=== PATIENT | male | born 1950 | race Caucasian/White ===

== ENCOUNTER 2018-02-01 10:06 | Outpatient (CLI) | payer MEDICARE | END 2018-02-01 10:07 | disposition home or self-care (01) | LOC: CTENTCT 10:06 | PROVIDERS: ATTEND Otolaryngology Plastic Surgery within the Head & Neck | DX: J32.9 Chronic sinusitis, unspecified (principal) | CPT/HCPCS: 70486 ==

== ENCOUNTER 2018-02-21 12:18 | Day surgery (SDC) | payer MEDICARE ==
[2018-02-20 12:34] VITALS: BMI 29.8
[2018-02-21] MEDS ORDERED: PROPOFOL 200 MG/20 ML VIAL ONE (12:28)
[2018-02-21] MEDS ORDERED: Dexamethasone 20 MG/5 ML VIAL ONE (12:28)
[2018-02-21] MEDS ORDERED: Lidocaine 1% PF 5 ML VIAL ONE (12:28)
[2018-02-21] MEDS ORDERED: Glycopyrrolate 0.2 MG/ML 5 ML SYRINGE ONE (12:28)
[2018-02-21] MEDS ORDERED: Ondansetron HCl/PF 4 MG/2 ML Vial ONE (12:28)
[2018-02-21] MEDS ORDERED: Oxymetazoline HCl 0.05% ( 15 ML ) ONE ×2 (14:36→15:40)
[2018-02-21] MEDS ORDERED: Lidocaine 1% w/Epinephrine 1:200K 30 ML VIAL ONE ×2 (14:47→15:40)
[2018-02-21 15:08] LABS: Hemoglobin 15.8 g/dL (14.0-18.0)
[2018-02-21] MEDS ORDERED: Fentanyl 100 MCG/2 ML VIAL ONE (15:38)
[2018-02-21] MEDS ORDERED: Midazolam HCl 2 mg/2 ml Vial ONE (15:39)
[2018-02-21 16:06] LABS: Chloride 101 mmol/L (98-107); Potassium 3.6 mmol/L (3.5-5.1)
[2018-02-21 16:07] LABS: Calcium 9.6 mg/dL (7.8-10.44); Glucose 91 mg/dL (80-115); Sodium 138 mmol/L (136-145)
[2018-02-21 16:09] LABS: Anion Gap 15 mmol/L (10-20); Carbon Dioxide 26 mmol/L (23-31)
[2018-02-21 16:11] LABS: Calc. Creatinine Clearance 104 mL/min (70-130); Estimated GFR-MDRD Greater than 90
[2018-02-21 16:12] LABS: BUN (Urea Nitrogen) 11 mg/dL (8.4-25.7)
[2018-02-21] MEDS ORDERED: HYDROcodone/Acetaminophen 5/325 mg Tablet ONE (18:17)
--- NOTE | 2018-02-22 13:02 | OP ---
DATE OF PROCEDURE: 02/21/2018 PREOPERATIVE DIAGNOSES: 1. Chronic rhinosinusitis. 2. Left middle turbinate debbi bullosa. 3. Bilateral inferior turbinate hypertrophy. 4. Nasal obstruction. POSTOPERATIVE DIAGNOSES: 1. Chronic rhinosinusitis. 2. Left middle turbinate debbi bullosa. 3. Bilateral inferior turbinate hypertrophy. 4. Nasal obstruction. PROCEDURES: 1. Bilateral endoscopic sinus surgery, total ethmoidectomies. 2. Bilateral endoscopic sinus surgery, maxillary antrostomies. 3. Bilateral endoscopic sinus surgery, frontal sinusotomies. 4. Bilateral inferior turbinate submucosal resection. 5. Left endoscopic resection of the middle turbinate debbi bullosa. SURGEON: Dinesh Feliciano M.D. ESTIMATED BLOOD LOSS: 50 mL. COMPLICATIONS: None. ANESTHESIA: GETA. PROCEDURE: The patient was taken to the operating room and placed supine on the table. General endo tracheal anesthesia was obtained by the Anesthesia staff. Tube was secured in the left lower lip. T he patient was placed in the beach chair position. Following this, Afrin pledgets placed in nasal ca vities. He was prepped and draped for standard nasal procedure. Following this, Afrin pledgets were removed. 1% lidocaine 1:100,000 epinephrine was injected into the inferior turbinates, middle turbi nates and lateral nasal wall bilaterally. Following this, the 0 degree scope was advanced in the lef t nasal cavity where a very large middle turbinate debbi bullosa was encountered. A vertical incisi on was made with a sickle knife in the anterior aspect of the middle turbinate. Using the straight m icrodebrider and straight Blakesley forceps the lateral wall of the left middle turbinate was removed . Following this, the uncinate process was identified and was anteriorly fractured using a ball and probe bilaterally. Following this, the uncinate was removed using the straight microdebrider and upb iting Blakesley forceps. Following this, the natural maxillary ostia was identified with a ball-ende d probe bilaterally and was gently widened using the microdebrider and a curved microdebrider. Follo wing this, the ethmoidal bulla was identified and was punctured on its medial and inferior aspect navya aterally with microdebrider and was removed. The grand lamella was then identified and was punctured in the posterior ethmoidal cells. Working from posterior to anterior, the ethmoidal cells were open ed in a mucosal-sparing technique. Following this, the 45-degree scope and the 40 degree microdebrid er blade was used to further open the frontal recess cells and frontal sinus ostia bilaterally. Foll owing this, the inferior turbinates were punctured on their anterior inferior aspect with the submuco kalee microdebrider and submucosal resection was performed of the anterior inferior portions of the inf erior turbinates. The patient tolerated the procedure well. The nasal cavity was irrigated. MeroPa cks were placed in the middle meatus.
== END 2018-02-21 18:50 | disposition home or self-care (01) ==
LOC: SDC 12:18
PROVIDERS: ATTEND Otolaryngology Plastic Surgery within the Head & Neck
PROC: 09TV8ZZ Resection of Left Ethmoid Sinus, Via Natural or Artificial Opening Endoscopic (ICD-10-PCS; principal; 2018-02-21)
PROC: 09TU8ZZ Resection of Right Ethmoid Sinus, Via Natural or Artificial Opening Endoscopic (ICD-10-PCS; 2018-02-21)
PROC: 099R8ZZ Drainage of Left Maxillary Sinus, Via Natural or Artificial Opening Endoscopic (ICD-10-PCS; 2018-02-21)
PROC: 099Q8ZZ Drainage of Right Maxillary Sinus, Via Natural or Artificial Opening Endoscopic (ICD-10-PCS; 2018-02-21)
PROC: 099T8ZZ Drainage of Left Frontal Sinus, Via Natural or Artificial Opening Endoscopic (ICD-10-PCS; 2018-02-21)
PROC: 099S8ZZ Drainage of Right Frontal Sinus, Via Natural or Artificial Opening Endoscopic (ICD-10-PCS; 2018-02-21)
PROC: 09BL0ZZ Excision of Nasal Turbinate, Open Approach (ICD-10-PCS; 2018-02-21)
PROC: 09BL8ZZ Excision of Nasal Turbinate, Via Natural or Artificial Opening Endoscopic (ICD-10-PCS; 2018-02-21)
DX: J32.9 Chronic sinusitis, unspecified (principal); J34.3 Hypertrophy of nasal turbinates; J30.9 Allergic rhinitis, unspecified; J34.2 Deviated nasal septum; H69.80 Other specified disorders of Eustachian tube, unspecified ear; Z88.8 Allergy status to other drugs, medicaments and biological substances
CPT/HCPCS: 36415; 80048; 85014; 85018; J0131; J1100; J2001; J2250; J2405; J2704; J3010

== ENCOUNTER 2020-08-10 11:03 | Outpatient (CLI) | payer MEDICARE | END 2020-08-10 11:04 | disposition home or self-care (01) | LOC: CTENTCT 11:03 | PROVIDERS: ATTEND Otolaryngology Plastic Surgery within the Head & Neck | DX: J32.9 Chronic sinusitis, unspecified (principal) | CPT/HCPCS: 70486 ==

== ENCOUNTER 2020-08-12 10:19 | Day surgery (SDC) | payer MEDICARE ==
[2020-08-11 09:42] VITALS: BMI 29.0
[2020-08-12] MEDS ORDERED: Dexamethasone 20 MG/5 ML VIAL ONE (10:27)
[2020-08-12] MEDS ORDERED: PHENYLEPHRINE-NS 100 MCG/ML 10 ML SYRINGE ONE (10:27)
[2020-08-12] MEDS ORDERED: Lidocaine 1% PF 5 ML VIAL ONE (10:27)
[2020-08-12] MEDS ORDERED: Rocuronium Bromide 10 MG/ML (10ML VIAL) ONE (10:27)
[2020-08-12] MEDS ORDERED: Ondansetron PF 4 MG/2 ML Vial ONE (10:27)
[2020-08-12] MEDS ORDERED: PROPOFOL 200 MG/20 ML VIAL ONE (10:27)
[2020-08-12] MEDS ORDERED: AFRIN NASAL MIST 15 ML BOT ONE ×2 (10:42→11:05)
[2020-08-12] MEDS ORDERED: Lidocaine 1% w/Epinephrine 1:100K 20 ML VIAL ONE (11:05)
[2020-08-12 11:24] LABS: Hemoglobin 14.7 g/dL (14.0-18.0); Platelet Count 287 thou/uL (130-400)
[2020-08-12] MEDS ORDERED: Fentanyl 100 MCG/2 ML VIAL ONE ×2 (11:33→13:21)
[2020-08-12] MEDS ORDERED: Midazolam HCl 2 mg/2 ml Vial ONE (11:33)
--- NOTE | 2020-08-12 11:43 | EKG ---
Test Reason : PREOP Blood Pressure : / mmHG Vent. Rate : 060 BPM Atrial Rate : 060 BPM P-R Int : 164 ms QRS Dur : 086 ms QT Int : 414 ms P-R-T Axes : 059 023 057 degrees QTc Int : 414 ms Normal sinus rhythm Normal ECG Confirmed by BERNIE HERNANDEZ M.D. ([id number]) on 08/12/2020 11:43:20 AM Referred By: JOSE Confirmed By:BERNIE HERNANDEZ M.D.
[2020-08-12 12:22] LABS: Calcium 9.2 mg/dL (7.8-10.44); Chloride 102 mmol/L (98-107); Potassium 4.5 mmol/L (3.5-5.1); Sodium 137 mmol/L (136-145)
[2020-08-12 12:23] LABS: Glucose 104 mg/dL (80-115)
[2020-08-12 12:24] LABS: Anion Gap 14 mmol/L (10-20); Carbon Dioxide 26 mmol/L (23-31)
[2020-08-12 12:26] LABS: Calc. Creatinine Clearance 90 mL/min (70-130); Estimated GFR-MDRD 85
[2020-08-12 12:27] LABS: BUN (Urea Nitrogen) 17 mg/dL (8.4-25.7)
--- NOTE | 2020-08-13 22:35 | OP ---
DATE OF PROCEDURE: 08/12/2020 PREOPERATIVE DIAGNOSES: 1. Chronic rhinosinusitis. 2. Nasal adhesions. 3. Nasal obstruction. 4. Bilateral inferior turbinate hypertrophy. 5. Nasal polyposis. 6. Allergic fungal sinusitis. POSTOPERATIVE DIAGNOSES: 1. Chronic rhinosinusitis. 2. Nasal adhesions. 3. Nasal obstruction. 4. Bilateral inferior turbinate hypertrophy. 5. Nasal polyposis. 6. Allergic fungal sinusitis. PROCEDURES PERFORMED: 1. Bilateral endoscopic sinus surgery, total ethmoidectomies and sphenoidotomies with removal of tissue. 2. Bilateral endoscopic sinus surgery, maxillary antrostomies with removal of tissue. 3. Bilateral endoscopic sinus surgery, frontal sinus exploration with removal of tissue. 4. Bilateral inferior turbinate submucosal resection. 5. [employer] cranial base image-guided surgery. ESTIMATED BLOOD LOSS: 50 mL. COMPLICATIONS: None. ANESTHESIA: GETA. DESCRIPTION OF PROCEDURE: The patient was taken to the operating room and placed supine on the table. General endotracheal anesthesia was obtained by the Anesthesia Staff. Tube was secured in the left lower lip. The patient was placed in a beach-chair position, prepped and draped for standard nasal procedure. Following this, the [employer] image-guided cranial base navigational system was set up, calibrated to be within 1 mm of accuracy. Following this, Afrin pledgets were removed from the nasal cavity and 1% lidocaine with 1:100,000 epinephrine was injected into the inferior turbinates, middle turbinates, and lateral nasal wall bilaterally. Following this, the middle turbinates were gently medialized. The patient had adhesions present from the remnant of the uncinate process to the middle turbinates, which were lysed with a sickle knife in a vertical fashion. Following this, microdebrider was used to remove tissue, widening this middle meatus base. There was significant amount of thick scarring present throughout the ethmoidal cells and sphenoid sinus and frontal sinus ostia and nasofrontal duct bilaterally as well as nasal polyps and fungal debris, all being worse on the left more so than the right. The 0-degree endoscope and straight Blakesley forceps under navigational guidance was used to remove the scar bands and widened any remnant ethmoidal cells, working from an anterior to posterior direction using the navigational system. Following this, the anterior face of the sphenoid sinus was identified. There was thick polypoid tissue and fungal debris encountered bilaterally, which was removed using microdebrider and straight suction. The sphenoid sinus ostia were then punctured with the 0-degree microdebrider, and a wide sphenoidotomy was created using the 0-degree microdebrider bilaterally. Following this, the curved 40-degree microdebrider blade under navigational guidance was used to identify and widen the maxillary sinus ostia. The previous antrostomy sites were scarred and were obliterated with nasal polyps and fungal debris bilaterally. This was removed using the microdebrider and curved suctions from within the maxillary sinus bilaterally. Following this, the frontal sinus ostia was identified using the curved microdebrider under navigational guidance and was reopened removing scar band and polypoid and fungal debris bilaterally. The frontal sinuses were then cleaned using a curved suction using the navigational system and irrigation. Following this, the nasal cavity was irrigated and steroid implanted stents were placed within the ethmoidal sinuses, maxillary sinus ostia, and frontal sinus ostia bilaterally. NasoPore packing was then placed to help further stent the middle turbinates away from the lateral nasal wall. Following this, the inferior turbinates were punctured on the anterior inferior aspect with submucosal microdebrider and submucosal resection was performed of the anterior and inferior portions of the inferior turbinates bilaterally. Following this, Afrin pledgets were left in the nose until the patient was extubated. The patient tolerated the procedure well. Job ID: [id number]
== END 2020-08-12 15:08 | disposition home or self-care (01) ==
LOC: SDC 10:19
PROVIDERS: ATTEND Otolaryngology Plastic Surgery within the Head & Neck
PROC: 8E09XBZ Computer Assisted Procedure of Head and Neck Region (ICD-10-PCS; principal; 2020-08-12)
PROC: 099R8ZZ Drainage of Left Maxillary Sinus, Via Natural or Artificial Opening Endoscopic (ICD-10-PCS; 2020-08-12)
PROC: 099Q8ZZ Drainage of Right Maxillary Sinus, Via Natural or Artificial Opening Endoscopic (ICD-10-PCS; 2020-08-12)
PROC: 09BT8ZZ Excision of Left Frontal Sinus, Via Natural or Artificial Opening Endoscopic (ICD-10-PCS; 2020-08-12)
PROC: 09BS8ZZ Excision of Right Frontal Sinus, Via Natural or Artificial Opening Endoscopic (ICD-10-PCS; 2020-08-12)
PROC: 09BL8ZZ Excision of Nasal Turbinate, Via Natural or Artificial Opening Endoscopic (ICD-10-PCS; 2020-08-12)
PROC: 09BV8ZZ Excision of Left Ethmoid Sinus, Via Natural or Artificial Opening Endoscopic (ICD-10-PCS; 2020-08-12)
PROC: 09BU8ZZ Excision of Right Ethmoid Sinus, Via Natural or Artificial Opening Endoscopic (ICD-10-PCS; 2020-08-12)
PROC: 09CX8ZZ Extirpation of Matter from Left Sphenoid Sinus, Via Natural or Artificial Opening Endoscopic (ICD-10-PCS; 2020-08-12)
PROC: 09CW8ZZ Extirpation of Matter from Right Sphenoid Sinus, Via Natural or Artificial Opening Endoscopic (ICD-10-PCS; 2020-08-12)
DX: J32.9 Chronic sinusitis, unspecified (principal); J31.0 Chronic rhinitis; J34.3 Hypertrophy of nasal turbinates; J34.89 Other specified disorders of nose and nasal sinuses; J33.9 Nasal polyp, unspecified; F17.200 Nicotine dependence, unspecified, uncomplicated; Z79.899 Other long term (current) drug therapy; Z88.8 Allergy status to other drugs, medicaments and biological substances
CPT/HCPCS: 30140; 31259; 31267; 31276; 61782; 80048; 85014; 85018; 85049; 93005; C2625; 93010; J1100; J2250; J2405; J2704; J3010

== ENCOUNTER 2023-03-22 08:48 | Day surgery (SDC) | payer MEDICARE ==
[2023-03-21 14:01] VITALS: BMI 29.0
[2023-03-22] MEDS ORDERED: Lidocaine 1% MPF 2 ML VIAL ONE (09:11)
[2023-03-22] MEDS ORDERED: Oxymetazoline HCl 0.05% (30 ML BOT) ONE ×2 (09:11→10:36)
[2023-03-22 10:14] LABS: Hemoglobin 14.1 g/dL (14.0-18.0)
[2023-03-22] MEDS ORDERED: EPINEPHrine 1 MG/ML AMP ONE (10:36)
[2023-03-22] MEDS ORDERED: Lidocaine 1% (PF) 30 ML VIAL ONE (10:36)
[2023-03-22] MEDS ORDERED: Bacitracin Zinc Ointment 30 gm TUBE ONE (10:36)
[2023-03-22] MEDS ORDERED: fentaNYL PF 100 MCG/2 ML SYRINGE ONE (10:37)
[2023-03-22 10:38] LABS: Anion Gap 15 mmol/L (10-20); BUN (Urea Nitrogen) 14 mg/dL (8.4-25.7); Calc. Creatinine Clearance 97 mL/min (70-130); Calcium 9.5 mg/dL (7.8-10.44); Carbon Dioxide 24 mmol/L (23-31); Chloride 103 mmol/L (98-107); Estimated GFR 94; Glucose 106 mg/dL (83-110); Potassium 3.8 mmol/L (3.5-5.1); Sodium 138 mmol/L (136-145)
[2023-03-22] MEDS ORDERED: Lidocaine 1% PF 5 ML VIAL ONE (11:30)
[2023-03-22] MEDS ORDERED: Ondansetron PF 4 MG/2 ML Vial ONE (11:30)
[2023-03-22] MEDS ORDERED: PROPOFOL 200 MG/20 ML VIAL ONE (11:30)
[2023-03-22] MEDS ORDERED: Succinylcholine Chloride 100 MG/5 ML SYRINGE FS ONE (11:30)
[2023-03-22] MEDS ORDERED: Dexamethasone 20 MG/5 ML VIAL ONE (11:30)
== END 2023-03-22 13:12 | disposition home or self-care (01) ==
LOC: SDC 08:48
PROVIDERS: ATTEND Otolaryngology Plastic Surgery within the Head & Neck
PROC: 09BW8ZZ Excision of Right Sphenoid Sinus, Via Natural or Artificial Opening Endoscopic (ICD-10-PCS; principal; 2023-03-22)
PROC: 099T8ZZ Drainage of Left Frontal Sinus, Via Natural or Artificial Opening Endoscopic (ICD-10-PCS; 2023-03-22)
PROC: 099S8ZZ Drainage of Right Frontal Sinus, Via Natural or Artificial Opening Endoscopic (ICD-10-PCS; 2023-03-22)
PROC: 8E09XBZ Computer Assisted Procedure of Head and Neck Region (ICD-10-PCS; 2023-03-22)
DX: J01.80 Other acute sinusitis (principal); J32.8 Other chronic sinusitis; J33.0 Polyp of nasal cavity; J34.3 Hypertrophy of nasal turbinates; J31.2 Chronic pharyngitis; E78.00 Pure hypercholesterolemia, unspecified; K21.9 Gastro-esophageal reflux disease without esophagitis; Z87.891 Personal history of nicotine dependence; Z79.82 Long term (current) use of aspirin; Z79.899 Other long term (current) drug therapy; Z88.8 Allergy status to other drugs, medicaments and biological substances; Z98.890 Other specified postprocedural states
CPT/HCPCS: 80048; 85014; 85018; 93005; 93010; J0171; J1100; J2001; J2405; J2704